=== PATIENT | female | born 1975 | race Hispanic/Latino ===

== ENCOUNTER 2018-04-02 17:26 | Observation (INO) | payer OTHER ==
[~2018-04-02] VITALS: Ht 160 cm; Wt 108.0 kg
[~2018-04-02 17:26] MED LIST: BYSTOLIC5 MG PO
[2018-04-02] MEDS ORDERED: ASPIRIN 81 MG CHEW TAB PO ONE (18:45)
[2018-04-02 19:01] LABS: BASOPHILS # (AUTO) 0.1 (0.0-0.1); BASOPHILS % 0.8 % (0.0-1.0); EOSINOPHILS # (AUTO) 0.1 (0.0-0.4); EOSINOPHILS % 1.3 % (0.0-6.0); HEMOGLOBIN 12.8 g/dL (12.0-16.0); LYMPHOCYTES # (AUTO) 2.8 (1.0-3.2); LYMPHOCYTES % 45.6 % (18.0-39.1); MEAN CORPUSCULAR HEMOGLOBIN 29.7 pg (28-32); MEAN CORPUSCULAR HGB CONC 33.7 g/dL (31-35); MEAN CORPUSCULAR VOLUME 88.2 fL (81-99); MONOCYTES # (AUTO) 0.5 (0.2-0.8); MONOCYTES % 7.6 % (4.4-11.3); NEUTROPHILS # (AUTO) 2.7 (2.1-6.9); NEUTROPHILS % 44.5 % (38.7-80.0); PLATELET COUNT 200 x10e3/uL (140-360); RED BLOOD COUNT 4.31 x10e6/uL (3.6-5.1); RED CELL DISTRIBUTION WIDTH 12.6 % (11.7-14.4)
[2018-04-02 19:07] LABS: INR 0.84; PROTHROMBIN TIME 12.3 seconds (11.9-14.5)
[2018-04-02 19:08] LABS: PARTIAL THROMBOPLASTIN TIME 24.7 seconds (23.8-35.5)
--- NOTE | 2018-04-02 19:19 | Diagnostic Imaging Report ---
EXAMINATION: CHEST 2 VIEWS INDICATION: Chest pain. COMPARISON: None FINDINGS: TUBES and LINES: None. LUNGS: Lungs are well inflated. Lungs are clear. There is no evidence of pneumonia or pulmonary edema. PLEURA: No pleural effusion or pneumothorax. HEART AND MEDIASTINUM: The cardiomediastinal silhouette is unremarkable. BONES AND SOFT TISSUES: No acute osseous lesion. Soft tissues are unremarkable. UPPER ABDOMEN: No free air under the diaphragm. IMPRESSION: No acute thoracic abnormality. Signed by: Dr. Ana Lilia Fox M.D. on 04/02/2018 7:16 PM
[2018-04-02 19:22] LABS: ALANINE AMINOTRANSFERASE 45 IU/L (0-55); ALBUMIN 3.8 g/dL (3.5-5.0); ALBUMIN/GLOBULIN RATIO 1.1 (0.8-2.0); ALKALINE PHOSPHATASE 76 IU/L (40-150); BLOOD UREA NITROGEN 23 mg/dL (7-26); BUN/CREATININE RATIO 29 (6-25); CALCIUM 9.8 mg/dL (8.4-10.2); CARBON DIOXIDE 26 mmol/L (22-29); CHLORIDE 101 mmol/L (98-107); CREATINE KINASE 49 IU/L (29-168); EST GLOMERULAR FILTRATION RATE > 60 ML/MIN (60-); GLUCOSE 218 mg/dL (74-118); SODIUM 139 mmol/L (136-145)
[2018-04-02 19:53] LABS: CLARITY,URINE SL CLOUDY (CLEAR); COLOR,URINE YELLOW (YELLOW); KETONES,URINE TRACE (NEGATIVE); LEUKOCYTE ESTERASE ,URINE NEGATIVE (NEGATIVE); NITRITE,URINE NEGATIVE (NEGATIVE); PROTEIN,URINE DIPSTICK TRACE (NEGATIVE)
[2018-04-02 19:54] LABS: BILIRUBIN,URINE NEGATIVE (NEGATIVE); URINE UROBILINOGEN 0.2 mg/dL (0.2 - 1)
[2018-04-02 20:05] LABS: BACTERIA,URINE MANY /HPF; EPITHELIAL CELLS,URINE FEW /LPF
[2018-04-02 20:06] LABS: MUCUS,URINE MODERATE (RARE)
[2018-04-02] MEDS ORDERED: POTASSIUM CHLORIDE 20 MEQ TAB CR PO STA (20:17)
[2018-04-02] MEDS ORDERED: ONDANSETRON HCL INJ 2 MG/ML VIAL IV PRN (20:45)
--- OUTSIDE RECORDS SUMMARY | 2018-04-02 20:51 | XMS REPORT ---
Author Author [facility] Address Unknown Phone Unavailable Care Team Providers Care Batch Still Operator Name Role Phone Lisa ANTON Unavailable Unavailable Problems This patient has no known problems. Allergies, Adverse Reactions, Alerts This patient has no known allergies or adverse reactions. Medications This patient has no known medications. Results Test Description Test Time Test Comments Text Results Atomic Results Result Comments CHEST 2 VIEWS 2018-04-02 19:15:00 [facility] [address] [place] [address] Patient Name: BRENDA JIANG MR #: [id number] : 1975 Age/Sex: 43/F Req #: [id number] Adm Physician: Ordered by: BRANDON DESIR NP Report #: [id number] Location: ER Room/Bed: Procedure: [id number] DX/CHEST 2 VIEWS Exam Date: 04/02/18 Exam Time: 1852 REPORT STATUS: Signed EXAMINATION: CHEST 2 VIEWS INDICATION: Chest pain. COMPARISON: None FINDINGS: TUBES and LINES: None. LUNGS: Lungs are well inflated. Lungs are clear. There is no evidence of pneumonia or pulmonary edema. PLEURA: No pleural effusion or pneumothorax. HEART AND MEDIASTINUM: The cardiomediastinal silhouette is unremarkable. BONES AND SOFT TISSUES: No acute osseous lesion. Soft tissues are unremarkable. UPPER ABDOMEN: No free air under the diaphragm. IMPRESSION: No acute thoracic abnormality. Signed by: Dr. Ana Lilia Saunders M.D. on 04/02/2018 7:16 PM Dictated By: HILDA SAUNDERS MD, MD 15 Transcribed By: MARIA DEL ROSARIO on 04/02/181915 COPY TO: BRANDON DESIR NP
[2018-04-02] MEDS: SODIUM CHLORIDE 0.9% 1000ML 1,000 ML IV SCH (21:05)
[2018-04-03 02:47] LABS: CREATINE KINASE 42 IU/L (29-168)
[2018-04-03 03:21] LABS: CREATINE KINASE MB < 1.00 ng/mL (0-4.3)
[2018-04-03] MEDS: SODIUM CHLORIDE 0.9% 1000ML 1,000 ML IV SCH (05:38)
--- NOTE | 2018-04-03 06:10 | Diagnostic Imaging Report ---
CHEST SINGLE (PORTABLE), 04/03/2018 7:00 AM Technique: CHEST SINGLE (PORTABLE) Comparison: Previous day Clinical history: Chest pain Findings: Stable appearance of the heart, mediastinum, lungs and pleural spaces. Impression: 1. Lines/Tubes: None 2. No acute abnormality. Signed by: Dr Heather Negron MD on 04/03/2018 6:06 AM
[2018-04-03 06:22] LABS: BASOPHILS # (AUTO) 0.1 (0.0-0.1); BASOPHILS % 0.8 % (0.0-1.0); EOSINOPHILS # (AUTO) 0.1 (0.0-0.4); EOSINOPHILS % 1.4 % (0.0-6.0); HEMATOCRIT 35.8 % (34.2-44.1); HEMOGLOBIN 12.1 g/dL (12.0-16.0); LYMPHOCYTES # (AUTO) 2.4 (1.0-3.2); LYMPHOCYTES % 36.2 % (18.0-39.1); MEAN CORPUSCULAR HGB CONC 33.8 g/dL (31-35); MEAN CORPUSCULAR VOLUME 88.8 fL (81-99); MONOCYTES # (AUTO) 0.5 (0.2-0.8); MONOCYTES % 7.9 % (4.4-11.3); NEUTROPHILS # (AUTO) 3.5 (2.1-6.9); NEUTROPHILS % 53.5 % (38.7-80.0); PLATELET COUNT 180 x10e3/uL (140-360); RED BLOOD COUNT 4.03 x10e6/uL (3.6-5.1); RED CELL DISTRIBUTION WIDTH 12.6 % (11.7-14.4)
[2018-04-03 06:33] LABS: ANION GAP 12.2 mmol/L (8-16); BLOOD UREA NITROGEN 19 mg/dL (7-26); BUN/CREATININE RATIO 28 (6-25); CALCIUM 9.2 mg/dL (8.4-10.2); CARBON DIOXIDE 24 mmol/L (22-29); CHLORIDE 104 mmol/L (98-107); CREATININE, SERUM 0.68 mg/dL (0.57-1.11); EST GLOMERULAR FILTRATION RATE > 60 ML/MIN (60-); GLUCOSE 228 mg/dL (74-118); POTASSIUM 3.2 mmol/L (3.5-5.1); SODIUM 137 mmol/L (136-145)
[2018-04-03 10:34] LABS: CREATINE KINASE 35 IU/L (29-168)
[2018-04-03 10:35] LABS: CREATINE KINASE MB < 1.00 ng/mL (0-4.3)
[2018-04-03 15:30] VITALS: BP 133/75
[2018-04-03] MEDS ORDERED: LOSARTAN POTAS100 MG PO (15:55)
[2018-04-03] MEDS ORDERED: METFORMIN HCL500 MG PO (15:55)
[2018-04-03] MEDS ORDERED: ZOCOR10 MG (15:56)
[2018-04-03] MEDS ORDERED: HYDROCHLOROTHIA25 MG (15:56)
[2018-04-03 15:58] VITALS: BP 133/75
[2018-04-03] MEDS ORDERED: ASPIR 8181 MG (15:59)
[2018-04-03] MEDS ORDERED: CLOPIDOGREL BISULFATE 75 MG TAB PO ONE (16:00)
[2018-04-03] MEDS ORDERED: POTASSIUM CHLORIDE 20 MEQ TAB CR PO ONE (16:00)
[2018-04-03] MEDS ORDERED: ASPIRIN 81 MG ENTERIC COATED PO SCH (16:00)
[2018-04-03 16:48] VITALS: BP 133/75
[2018-04-03 16:50] LABS: ANION GAP 13.4 mmol/L (8-16); BLOOD UREA NITROGEN 13 mg/dL (7-26); BUN/CREATININE RATIO 17 (6-25); CALCIUM 9.3 mg/dL (8.4-10.2); CARBON DIOXIDE 26 mmol/L (22-29); CHLORIDE 104 mmol/L (98-107); CREATININE, SERUM 0.78 mg/dL (0.57-1.11); EST GLOMERULAR FILTRATION RATE > 60 ML/MIN (60-); GLUCOSE 290 mg/dL (74-118); POTASSIUM 3.4 mmol/L (3.5-5.1); SODIUM 140 mmol/L (136-145)
[2018-04-03 18:10] LABS: CHOL/HDL RATIO 4.9 (3.0-3.6)
--- NOTE | 2018-04-03 19:12 | History and Physical ---
HISTORY OF PRESENT ILLNESS: Patient is a 43-year-old female with past medical history positive for diabetes, hypertension, hypercholesterolemia, and past family history of coronary artery disease, who came to the hospital complaining on some atypical chest pain, which was sharp in nature, worse whenever she was moving and radiated to the left arm. The chest pain went away. EKG is pretty much unremarkable except for sinus rhythm with some futures complexes. No evidence of any ST segment elevation or depression. Cardiac enzymes x3 completely normal. Dr. Carrion of cardiology saw the patient. He recommended a nuclear medicine stress test, which can be done as an outpatient. Patient decided to go home and do the stress test as an outpatient. REVIEW OF SYSTEMS CARDIOVASCULAR: She had very atypical chest pain, which was sharp in nature, increasing whenever she was turning or walking. No palpitation. RESPIRATORY: No shortness of breath and no cough. GASTROINTESTINAL: No nausea. No vomiting. No diarrhea. PAST MEDICAL HISTORY: Positive for hypertension, diabetes, and hypercholesterolemia. SOCIAL HISTORY: She drinks very occasionally. Socially she never smoked. PHYSICAL EXAMINATION VITAL SIGNS: Heart rate 73 per minute, respiratory rate 16 per minute, and oxygen saturation 97%. HEART: Regular rhythm. Normal S1, S2 sounds. LUNGS: Clear bilaterally. ABDOMEN: Soft. EXTREMITIES: Show no evidence of edema. DIAGNOSTIC DATA: EKG showed sinus rhythm. No evidence of any ST segment elevation or depression. No Q-wave inversions. Cardiac enzymes x3 are negative. On the BMP; sodium 137, potassium 3.2, chloride 104, CO2 24, BUN 19, creatinine 0.68, and glucose 228. On the CBC; white blood count 6.55, hemoglobin 12.1, hematocrit 35.8, and platelet count 180,000. PT 12.3, INR was 0.84, PTT 24.7, AST 24, ALT 45, total bilirubin 0.47, and alkaline phosphatase 76. FINAL IMPRESSION 1. Atypical chest pain. 2. Diabetes mellitus type 2 with hyperglycemia. 3. Hypertension. 4. Hypercholesterolemia. 5. Obesity. PLAN OF TREATMENT: . Continue rest of the home medications. Patient is going home today. She have chosen to have a stress test done as an outpatient. I discussed the case with the Dr. Carrion. He recommended the patient to have a stress test early if not inpatient, outpatient at least. Job#: [id number] LISBET
--- NOTE | 2018-04-04 00:01 | Consultation ---
DATE OF CONSULTATION: April 03, 2018 CARDIAC CONSULTATION REASON FOR CONSULTATION: Chest pain. HISTORY: A 43-year-old lady who is known with hypertension, diabetes mellitus, obesity, and positive family history of coronary artery disease. Patient came to this institution complaining of chest pain. The chest pain is localized to an area around the umbilicus. Probably it radiated to her back. Also at that time she had pain in both shoulders, but she was under a lot of stress and she was tired. She was worried about that, she came to the emergency room. She had 3 sets of cardiac enzymes, all were normal. Cardiac consultation is obtained. I visited the patient and she denied having any exertional angina. She does have this pain frequently, sometimes also radiating to her hand and she does have neck pain. She was seen by a bottle tester before that and she did not follow up with him. REVIEW OF SYSTEMS: Done for all systems, only pertinent ones will be mentioned. CARDIAC: As per above. No exertional angina. No orthopnea. No paroxysmal nocturnal dyspnea. PULMONARY: No cough. No hemoptysis. No recent travel. No hormone use. GI: Patient had lap band surgery. She does have quite a lot of GI discomfort but no nausea, no vomiting, no hematemesis, no melena. : No hematuria. No dysuria. MUSCULOSKELETAL: Low back pain. NEUROLOGIC: No headache. No weakness. SOCIAL HISTORY: She is . She is nonsmoker. She is a social alcohol drinker. If any, drinks every now and then. HOME MEDICATIONS: Metformin 1000 mg twice a day, losartan/hydrochlorothiazide 100/25 mg 1 tablet a day, and Zocor 10 mg a day. ALLERGIES: NONE. PAST MEDICAL HISTORY 1. Hypertension. 2. Diabetes mellitus for 3 years. 3. Obesity. 4. Lap band surgery. 5. Cholecystectomy. 6. . FAMILY HISTORY: Father is doing well. Mother at age 64. She had first bypass at age 40 and she had myocardial infarction during the time of her . Two full brothers, two half brothers, and three half sisters now with premature coronary artery disease. PHYSICAL EXAMINATION VITALS: Height of 5 feet 3 inches, weight of 240 pounds, blood pressure 120/70, heart rate of 70, respiratory rate of 18, temperature of 98 Fahrenheit. HEENT: Pupils are reactive. NECK: No elevation of jugular venous pulsation. No bruit. CHEST: Clear to auscultation and percussion. HEART: PMI in fifth left intercostal space. Normal first and second heart sounds. ABDOMEN: Obese. No organomegaly. No abdominal bruits. No rebound. EXTREMITIES: No cyanosis. No clubbing. No edema. No signs of deep venous thrombosis. NEUROLOGIC: Nonfocal. LAB DATA: As per chart. Sodium of 137, potassium 3.2, BUN of 19, creatinine of 0.7. White blood cell count of 6.5, hemoglobin of 12.1, and hematocrit 36%. EKG is showing no acute ST-T changes. IMPRESSION 1. Diabetes mellitus. 2. Hypertension. 3. Obesity. 4. Positive family history of coronary artery disease on the mother's side. 5. Chest pain, seems to be atypical for coronary artery disease, but patient with several risk factors. PLAN: Patient is already ruled out for myocardial infarction. We will check her lipid profile. We will check her hemoglobin A1c. Options are discussed and explained. If patient wants to go home, she needs to be on aspirin and we will give her 1 load of Plavix here and she will come on Thursday to do a stress test. If patient wants to stay in, then we will do her stress test. All of this is discussed and explained. Questions are answered. Job#: [id number] RHEA
--- NOTE | 2018-04-04 02:25 | Discharge Summary ---
BRIEF HISTORY AND HOSPITAL COURSE: The patient is a 43-year-old female who has past medical history positive for hypertension, hypercholesterolemia, diabetes, and obesity, came here with very atypical chest pain. She was seen by Dr. Carrion of Cardiology. She has chosen to do a stress test as an outpatient. Cardiac enzymes are negative. EKG is unremarkable. PHYSICAL EXAM HEART: Regular rhythm. Normal S1 and S2 sounds. LUNGS: Clear bilaterally. FINAL IMPRESSION 1. Atypical chest pain. 2. Diabetes mellitus type 2. 3. Hyperglycemia. 4. Hypertension. 5. Hypercholesterolemia. 6. Morbid obesity. PLAN OF TREATMENT: She is going to be discharged on aspirin 81 mg daily. Continue the rest of home medications. Potassium is going to be replaced. Potassium is going to be rechecked. She is going to follow up with Dr. Carrion as an outpatient for stress testing. PACHECO LOGAN MD Job#: [id number] GABrionna
[2018-04-04] MEDS ORDERED: NEBIVOLOL 10 MG TAB PO SCH (09:00)
== END 2018-04-03 15:34 | disposition home or self-care (01) ==
LOC: ER 17:26 → ERHOLD 20:34 → IMCU 04-03 14:55
PROVIDERS: ADMIT Internal Medicine; ATTEND Internal Medicine
DX: R07.89 Other chest pain (principal); E87.6 Hypokalemia; I10 Essential (primary) hypertension; J44.9 Chronic obstructive pulmonary disease, unspecified; Z82.49 Family history of ischemic heart disease and other diseases of the circulatory system; E78.5 Hyperlipidemia, unspecified; E11.65 Type 2 diabetes mellitus with hyperglycemia; E78.00 Pure hypercholesterolemia, unspecified; E66.01 Morbid (severe) obesity due to excess calories; Z68.41 Body mass index [BMI] 40.0-44.9, adult
CPT/HCPCS: 36415 ×2; 71045; 71046; 80048; 80053; 80061; 81001; 82550 ×2; 82553 ×2; 83036; 83735; 83880; 84443; 84484 ×2; 84702; 85025 ×2; 85610; 85730; 93005 ×2; 99284; G0378 ×2; J7030 ×2

== ENCOUNTER 2019-05-26 10:05 | Observation (INO) | payer OTHER ==
[2019-05-23 13:13] LABS: BASOPHILS # (AUTO) 0.1 (0.0-0.1); BASOPHILS % 0.8 % (0.0-1.0); EOSINOPHILS # (AUTO) 0.1 (0.0-0.4); EOSINOPHILS % 1.3 % (0.0-6.0); HEMATOCRIT 38.6 % (34.2-44.1); LYMPHOCYTES # (AUTO) 2.9 (1.0-3.2); LYMPHOCYTES % 40.7 % (18.0-39.1); MEAN CORPUSCULAR HEMOGLOBIN 29.7 pg (28-32); MEAN CORPUSCULAR HGB CONC 33.7 g/dL (31-35); MEAN CORPUSCULAR VOLUME 88.1 fL (81-99); MONOCYTES # (AUTO) 0.6 (0.2-0.8); MONOCYTES % 7.8 % (4.4-11.3); NEUTROPHILS # (AUTO) 3.5 (2.1-6.9); PLATELET COUNT 241 x10e3/uL (140-360); RED BLOOD COUNT 4.38 x10e6/uL (3.6-5.1); RED CELL DISTRIBUTION WIDTH 12.7 % (11.7-14.4)
[2019-05-23 13:28] LABS: ANION GAP 14.8 mmol/L (8-16); BLOOD UREA NITROGEN 15 mg/dL (7-26); BUN/CREATININE RATIO 21 (6-25); CALCIUM 9.8 mg/dL (8.4-10.2); CARBON DIOXIDE 23 mmol/L (22-29); CHLORIDE 104 mmol/L (98-107); CREATININE, SERUM 0.71 mg/dL (0.57-1.11); EST GLOMERULAR FILTRATION RATE > 60 ML/MIN (60-); GLUCOSE 136 mg/dL (74-118); POTASSIUM 3.8 mmol/L (3.5-5.1); SODIUM 138 mmol/L (136-145)
[~2019-05-26] VITALS: Ht 157.5 cm; Wt 111.1 kg
[~2019-05-26 10:05] MED LIST changes: +ASPIR 8181 MG; +GLIMEPIRIDE2 MG PO; +HYDROCHLOROTHIA25 MG; +LOSARTAN POTAS100 MG PO; +METFORMIN HCL500 MG PO; +TELMISARTAN-HC1 EAC1 PO; +ZOCOR10 MG
[2019-05-26] MEDS ORDERED: CEFAZOLIN SOD 1 GM/NS 50ML 100 ML IV ONE (10:25)
[2019-05-26] MEDS ORDERED: HYDROMORPHONE 1MG/1ML INJ ONE ×2 (12:43→15:15)
[2019-05-26] MEDS ORDERED: DEXTROSE 50% SYRINGE 50 ML IV PRN (14:00)
[2019-05-26] MEDS ORDERED: MORPHINE SULFATE INJ 4 MG/ML INJ 1ML IV PRN (14:00)
[2019-05-26] MEDS ORDERED: ACETAMINOPHEN 1000 MG/100 ML 100 ML IV ONE (14:12)
[2019-05-26] MEDS: INSULIN LISPRO 100 UNIT/1 ML 3ML VIAL SQ SCH ×2 (16:30→21:00)
[2019-05-26 16:47] VITALS: BP 151/85
[2019-05-26 17:51] VITALS: BP 151/85
[2019-05-26] MEDS ORDERED: INFLUENZA VIRUS VAC SPLIT INJ 0.5 ML SYR IM SCH (17:54)
[2019-05-26] MEDS ORDERED: PNEUMOCOCCAL VACCINE POLYVALENT 23 MCG/0.5 ML VIAL IM SCH (17:54)
[2019-05-26 17:59] VITALS: BP 151/85
[2019-05-26] MEDS: SODIUM CHLORIDE 0.9% 1000ML 1,000 ML IV SCH ×2 (18:19→23:24)
[2019-05-26] MEDS ORDERED: ACETAMINOPHEN 1000 MG/100 ML IV ONE (18:43)
[2019-05-26] MEDS ORDERED: LABETALOL HCL 5 MG/ML 20ML VIAL ONE (18:43)
[2019-05-26] MEDS ORDERED: ROCURONIUM BROMIDE 10 MG/ML 5ML VIAL ONE (18:43)
[2019-05-26] MEDS ORDERED: LIDOCAINE HCL 2% LOCAL INJ 5 ML SDV VIAL INJ ONE (18:43)
[2019-05-26] MEDS ORDERED: PROPOFOL IV EMULSION 10 MG/ML 20 ML VIAL ONE (18:43)
[2019-05-26] MEDS ORDERED: DEXAMETHASONE SOD PHOS INJ 4 MG/ML VIAL ONE (18:43)
[2019-05-26] MEDS ORDERED: DESFLURANE 240 ML BTL INH ONE (18:43)
[2019-05-26] MEDS ORDERED: ONDANSETRON HCL INJ 2MG/ML 2ML 2 MG/ML VIAL ONE (18:43)
[2019-05-26] MEDS ORDERED: NEOSTIGMINE 1 MG/ML 10ML VIAL ONE (18:43)
[2019-05-26] MEDS ORDERED: GLYCOPYRROLATE INJ 0.2 MG/ML VIAL ONE (18:43)
[2019-05-26] MEDS: HYDROCODONE/APAP 5MG-325MG TAB PO PRN ×2 (19:08→23:25)
[2019-05-26] MEDS: CEFAZOLIN SOD 1 GM/NS 50ML 50 ML IV SCH ×2 (19:08→23:24)
[2019-05-26] MEDS: METFORMIN HCL 500 MG TAB PO SCH (19:08)
[2019-05-26] MEDS: GLIMEPIRIDE 2 MG TAB PO SCH (19:08)
[2019-05-26] MEDS ORDERED: MIDAZOLAM HCL 2 MG/2 ML VIAL ONE (19:18)
[2019-05-26] MEDS ORDERED: FENTANYL CITRATE/PF 100MCG/2 ML INJ ONE (19:18)
[2019-05-26 20:15] VITALS: BP 132/80
[2019-05-26 21:00] VITALS: BP 132/80
--- NOTE | 2019-05-26 21:33 | Operative Report ---
DATE OF PROCEDURE: 05/26/2019 SURGEON: Saul Berrios MD PREOPERATIVE DIAGNOSIS: Left thyroid isthmus mass. POSTOPERATIVE DIAGNOSIS: Left thyroid isthmus mass. PROCEDURE: Left thyroid lobectomy with excision of thyroid isthmus mass. ADVERTISING ANALYST: None. ANESTHESIA: General. INDICATIONS AND FINDINGS: The patient is a 44-year-old female, who presented with large mass in the left lobe of the thyroid with some local symptoms of pain. At Surgery, there was a large mass about 6 cm in diameter extending off the inferior aspect of the left lobe of the thyroid, compressing the trachea and esophagus. There was a nodule in the isthmus of thyroid, which was also removed. Pathologic examination, a probable multinodular goiter. TECHNIQUE: After adequate general endotracheal anesthesia, the patient in supine position, the neck was prepped and draped in sterile fashion with ChloraPrep solution. Transverse incision was made about 2 cm above the sternal notch, carried down through the subcutaneous tissue and platysma. Subplatysmal flaps were raised superiorly and inferiorly. Strap muscles were divided in the midline. Strap muscles dissected away from the left lobe of the thyroid. There was a large mass in the left lobe of the thyroid extending inferiorly, posteriorly compressing the trachea and esophagus and extending substernally for a short distance also. This mass was mobilized, delivered up into the wound. It was about 6 cm in diameter. The thyroid was mobilized by dividing the middle thyroid vein. The recurrent laryngeal nerve was identified and preserved as was the inferior parathyroid gland. Vessels going into the thyroid were divided between hemoclips and the care was taken not to injure the recurrent laryngeal nerve. As this large mass was mobilized, it was found to be arising from the lower portion of the left lobe of the thyroid. Left lobe of the thyroid was also mobilized by dividing the vessels going into the thyroid. Once again, care was taken not to injure the recurrent laryngeal nerve. The superior pole vessels were dissected free and divided between hemoclips also. Superior parathyroid was also identified and preserved. As the gland was mobilized, it was mobilized from lateral to medial until it was freed from the trachea and then once it was completely freed, it was divided at the isthmus between clamps. There was a nodule in the isthmus and this also was excised using electrocautery. The divided thyroid was oversewn with sutures of 2-0 Vicryl. The mass was submitted for pathology with their evaluation suggesting multinodular goiter. Hemostasis, the wound was seen to be adequate. A 19-Chinese Jensen drain was placed into the wound through a separate stab incision beneath the strap muscles. The wound was irrigated with saline, inspected for hemostasis, which was seen to be adequate. The strap muscles were then reapproximated in the midline using 2-0 Vicryl. The platysma was closed with running suture with 3-0 Vicryl. Skin was closed with a running subcuticular suture of 4-0 Vicryl. Steri-Strips and sterile dressing were applied. The patient tolerated the procedure well. Estimated blood loss was 40 mL. There were no complications. All counts were correct, and the patient was taken to the recovery room in satisfactory condition. MD GRACIE Clark/MODL /[id number] cc: MD Leticia Zhang MD
--- NOTE | 2019-05-26 22:06 | NUR ---
Patient states she is having some vaginal bleeding which she hasn't had since having Mirena IUD placed. Provided pads and educated to let nurse see bleeding before removing pads. Will continue to monitor.
[2019-05-26 23:53] VITALS: BP 125/78
[2019-05-27] MEDS: CEFAZOLIN SOD 1 GM/NS 50ML 50 ML IV SCH (05:20)
[2019-05-27 05:37] LABS: BASOPHILS % 0.3 % (0.0-1.0); EOSINOPHILS % 0.2 % (0.0-6.0); HEMOGLOBIN 11.8 g/dL (12.0-16.0); LYMPHOCYTES # (AUTO) 2.3 (1.0-3.2); LYMPHOCYTES % 24.8 % (18.0-39.1); MEAN CORPUSCULAR HEMOGLOBIN 29.4 pg (28-32); MEAN CORPUSCULAR HGB CONC 33.7 g/dL (31-35); MEAN CORPUSCULAR VOLUME 87.3 fL (81-99); MONOCYTES # (AUTO) 0.8 (0.2-0.8); MONOCYTES % 8.3 % (4.4-11.3); PLATELET COUNT 222 x10e3/uL (140-360); RED BLOOD COUNT 4.01 x10e6/uL (3.6-5.1); RED CELL DISTRIBUTION WIDTH 12.5 % (11.7-14.4)
[2019-05-27 05:53] VITALS: BP 108/64
[2019-05-27 05:56] LABS: ANION GAP 13.4 mmol/L (8-16); BLOOD UREA NITROGEN 9 mg/dL (7-26); BUN/CREATININE RATIO 13 (6-25); CALCIUM 9.4 mg/dL (8.4-10.2); CARBON DIOXIDE 27 mmol/L (22-29); CHLORIDE 102 mmol/L (98-107); EST GLOMERULAR FILTRATION RATE > 60 ML/MIN (60-); GLUCOSE 136 mg/dL (74-118); POTASSIUM 3.4 mmol/L (3.5-5.1); SODIUM 139 mmol/L (136-145)
[2019-05-27] MEDS: INSULIN LISPRO 100 UNIT/1 ML 3ML VIAL SQ SCH ×2 (07:30→11:30)
[2019-05-27 07:39] VITALS: BP 108/64
[2019-05-27] MEDS: HYDROCODONE/APAP 5MG-325MG TAB PO PRN (07:40)
[2019-05-27 07:57] VITALS: BP 113/81
[2019-05-27] MEDS: METFORMIN HCL 500 MG TAB PO SCH (08:15)
[2019-05-27] MEDS: GLIMEPIRIDE 2 MG TAB PO SCH (08:15)
[2019-05-27 08:40] VITALS: BP 113/81
[2019-05-27] MEDS ORDERED: TELMISARTAN 40 MG TAB PO SCH (09:00)
[2019-05-27] MEDS ORDERED: HYDROCHLOROTHIAZIDE 25 MG TAB PO SCH (09:00)
[2019-05-27 12:10] VITALS: BP 118/84
== END 2019-05-27 14:52 | disposition home or self-care (01) ==
LOC: OR 10:05 → PACU V 15:28 → MED/SURG2 16:29
PROVIDERS: ADMIT Surgery; ATTEND Surgery
DX: E07.9 Disorder of thyroid, unspecified (principal); I10 Essential (primary) hypertension; E11.9 Type 2 diabetes mellitus without complications; E78.00 Pure hypercholesterolemia, unspecified
CPT/HCPCS: 36415 ×3; 60200; 80048 ×2; 82948; 84702; 85025 ×2; 88172; 88173; 88305; 88329; 93005; G0378 ×2; J0131; J0690 ×2; J1100; J1170; J2001; J2250; J2405; J2704; J2710; J3010; J3490; 88307